=== PATIENT | female | born 1975 | race Caucasian/White ===

== ENCOUNTER 2016-10-02 10:07 | Emergency (ER) | payer OTHER ==
[~2016-10-02] VITALS: Ht 172.7 cm; Wt 86.2 kg
[2016-10-02] MEDS ORDERED: IBUPROFEN 600600 M1 PO (12:11)
[2016-10-02 12:28] VITALS: BP 128/74
== END 2016-10-02 12:31 | disposition home or self-care (01) ==
LOC: ER 10:07
DX: R51 Headache (principal); R11.2 Nausea with vomiting, unspecified; R04.2 Hemoptysis; J34.89 Other specified disorders of nose and nasal sinuses; J45.909 Unspecified asthma, uncomplicated; F17.210 Nicotine dependence, cigarettes, uncomplicated